=== PATIENT | male | born 1960 | race Caucasian/White ===

== ENCOUNTER 2017-06-09 11:50 | Day surgery (SDC) | payer OTHER, MEDICAID ==
[~2017-06-09] VITALS: Ht 181.6 cm; Wt 80.3 kg
[~2017-06-09 11:50] MED LIST: ALBU2TAB4 PO; ALPR2TAB2 PO; ASPI81TA27 PO; HYDR-4663 PO; NITR0.4S29 SL
[2017-06-09] MEDS ORDERED: IODIXANOL 320MG/ML 100ML BTL IV ONE (12:17)
[2017-06-09] MEDS ORDERED: LIDOCAINE 2%HCL (LOCAL ANESTH.) INJ 20ML MDV ONE (12:18)
[2017-06-09] MEDS ORDERED: ANGIOMAX 250 MG VIAL IV ONE (12:43)
[2017-06-09] MEDS ORDERED: EPTIFIBATIDE INJ (2MG/ML) 10ML VIAL IV ONE (12:44)
[2017-06-09] MEDS ORDERED: MIDAZOLAM HCL 1MG/1ML-2 ML VIAL ONE (12:44)
[2017-06-09] MEDS ORDERED: SODIUM CHL 0.9% 50 ML ONE (12:44)
[2017-06-09] MEDS ORDERED: VERAPAMIL 2.5MG/ML INJ 2ML VIAL IV ONE (12:44)
[2017-06-09] MEDS ORDERED: fentaNYL CITRATE 100 MCG/2 ML VL ONE (12:44)
[2017-06-09] MEDS ORDERED: ADENOSINE 90 MG/30 ML INJ IV ONE (13:13)
[2017-06-09] MEDS ORDERED: hydrALAZINE HCL 20 MG/ML VL IV ONE (15:15)
[2017-06-09] MEDS ORDERED: HYDROcodone-ACET 5/325MG TAB PO ONE (15:15)
== END 2017-06-09 16:00 | disposition home health service (06) ==
LOC: CATH 11:50
PROVIDERS: ATTEND Internal Medicine
DX: I20.0 Unstable angina (principal); R94.39 Abnormal result of other cardiovascular function study
CPT/HCPCS: 93005; 93458; C1769; C1887; C1894; J0153; J0360; J0583; J1644; J2250; J3010; J7030; Q9967; 99152; 99153

== ENCOUNTER 2024-04-15 06:50 | Day surgery (SDC) | payer OTHER, MEDICAID ==
[2024-04-15] VITALS (7 sets, daily range): BP systolic 111–158; BP diastolic 73–89; PULSE 67–80; RESP 12–25; O2SAT 97–100
[~2024-04-15] VITALS: Ht 180.3 cm; Wt 80.7 kg
[~2024-04-15 06:50] MED LIST changes: -ALBU2TAB4 PO; -ALPR2TAB2 PO; +ASPI-543 PO; -ASPI81TA27 PO; +ATOR40TA52 PO; +FLUT1AER6 IN; -HYDR-4663 PO; +HYDR-4798 PO; +HYDR-531 PO; +LOSA-534 PO; +RANO10003 PO
[2024-04-15] MEDS ORDERED: IODIXANOL 320MG/ML 100ML BTL IV ONE ×2 (07:33→07:46)
[2024-04-15] MEDS ORDERED: HEPARIN SODIUM (PORCINE) 5000 UNITS/ML 1ML VIAL ONE (08:06)
[2024-04-15] MEDS ORDERED: LIDOCAINE 2%HCL (LOCAL ANESTH.) INJ 20ML MDV ONE (08:06)
[2024-04-15] MEDS ORDERED: VERAPAMIL 2.5MG/ML INJ 2ML VIAL IV ONE (08:06)
[2024-04-15] MEDS ORDERED: ANGIOMAX 250 MG VIAL IV ONE (08:06)
[2024-04-15] MEDS ORDERED: SODIUM CHL 0.9% 0 ML ONE (08:07)
[2024-04-15] MEDS ORDERED: MIDAZOLAM HCL 2MG/2ML 2ml VIAL (1mg/ml) ONE (08:08)
[2024-04-15] MEDS ORDERED: fentaNYL CITRATE 100 MCG/2 ML VL ONE (08:08)
== END 2024-04-15 10:45 | disposition home or self-care (01) ==
LOC: CATH 06:50
PROVIDERS: ATTEND Internal Medicine
DX: R94.39 Abnormal result of other cardiovascular function study (principal); I25.10 Atherosclerotic heart disease of native coronary artery without angina pectoris; J44.9 Chronic obstructive pulmonary disease, unspecified; Z95.5 Presence of coronary angioplasty implant and graft; Z82.49 Family history of ischemic heart disease and other diseases of the circulatory system
CPT/HCPCS: 93458; C1769; C1894; J1644; J2250; J3010; J7030; Q9967; 99152